=== PATIENT | male | born 1950 | race Caucasian/White ===

== ENCOUNTER 2023-01-19 17:00 | Outpatient (CLI) | payer MEDICARE, OTHER ==
[2023-01-19 18:20] LABS: Bilirubin Neg (Negative); Blood, Urine 250 (Negative); Clarity Slightly Cloudy (Clear); Glucose, Urine (Dipstick) Normal (Negative); Hemoglobin 13.6 g/dL (13.5-17.5); Ketone, Urine Negative (Negative); Leukocyte 100 (Negative); Mean Corpuscular HGB CONC 33.1 g/dL (32.0-36.0); Mean Corpuscular Hemoglobin 29.8 pg (27.0-33.0); Mean Corpuscular Volume 89.9 fl (81.2-95.1); Mean Platelet Volume 10.7 fl (7.4-10.4); Nitrite Negative (Negative); Platelet Count 202 10x3/uL (150-450); Protein, Urine (Dipstick) 30 mg/dl (Neg-Trace); RBC Distribution Width 13.7 % (11.5-14.5); Red Blood Cell (RBC) Count 4.57 10x6/uL (4.32-5.72); Specific Gravity, Urine 1.015 (1.005-1.030); Urobilinogen Normal mg/dL (Less than 2); White Blood Cell (WBC) Count 7.3 10x3/uL (3.5-10.5)
[2023-01-19 18:35] LABS: Anion Gap 15 mmol/L (10-20); BUN (Urea Nitrogen) 38 mg/dL (8.4-25.7); Calc. Creatinine Clearance 0 mL/min (70-130); Calcium 8.6 mg/dL (7.8-10.44); Carbon Dioxide 23 mmol/L (23-31); Chloride 109 mmol/L (98-107); Estimated GFR 26; Glucose 89 mg/dL (83-110); Sodium 143 mmol/L (136-145)
[2023-01-19 18:36] LABS: PTT 28.4 sec (22.0-33.0); Prothrombin Time 11.2 sec (9.5-12.1)
[2023-01-19 18:39] LABS: Bacteria/HPF 1+ HPF (None Seen); Mucous/LPF Rare LPF (<2+); RBC/HPF Greater than 50 HPF (0-3); Squamous Epithelial 0-3 HPF (0-3)
== END 2023-01-19 17:01 | disposition home or self-care (01) ==
LOC: LABBT 17:00
PROVIDERS: ATTEND Urology
DX: Z01.818 Encounter for other preprocedural examination (principal); N20.1 Calculus of ureter
CPT/HCPCS: 80048; 81001; 85027; 85610; 85730; 87086; 93005; 93010

== ENCOUNTER 2023-01-29 02:46 | Day surgery (SDC) | payer OTHER ==
[2023-01-29] MEDS ORDERED: fentaNYL PF 100 MCG/2 ML SYRINGE ONE (10:29)
== END 2023-01-29 16:33 | disposition home or self-care (01) ==
LOC: SDC 02:46
PROVIDERS: ATTEND Urology
DX: N20.1 Calculus of ureter (principal); I12.9 Hypertensive chronic kidney disease with stage 1 through stage 4 chronic kidney disease, or unspecified chronic kidney disease; N18.30 Chronic kidney disease, stage 3 unspecified; E78.5 Hyperlipidemia, unspecified; I48.91 Unspecified atrial fibrillation; G47.30 Sleep apnea, unspecified; I69.354 Hemiplegia and hemiparesis following cerebral infarction affecting left non-dominant side; F03.90 Unspecified dementia, unspecified severity, without behavioral disturbance, psychotic disturbance, mood disturbance, and anxiety; J30.2 Other seasonal allergic rhinitis; M19.90 Unspecified osteoarthritis, unspecified site; N40.0 Benign prostatic hyperplasia without lower urinary tract symptoms; Z53.9 Procedure and treatment not carried out, unspecified reason; Z88.2 Allergy status to sulfonamides

== ENCOUNTER 2023-01-29 07:11 | Day surgery (SDC) | payer MEDICARE ==
[2023-01-28 09:26] VITALS: BMI 39.8
[2023-01-29] MEDS ORDERED: Levofloxacin 500 mg/D5W 100 ml Premix Bag ONE (10:40)
[2023-01-29] MEDS ORDERED: Glycopyrrolate 0.2 MG/ML 5 ML SYRINGE ONE (10:58)
[2023-01-29] MEDS ORDERED: Rocuronium Bromide 10 MG/ML (10ML VIAL) ONE (10:58)
[2023-01-29] MEDS ORDERED: PROPOFOL 200 MG/20 ML VIAL ONE (10:58)
[2023-01-29] MEDS ORDERED: Ondansetron PF 4 MG/2 ML Vial ONE (10:58)
[2023-01-29] MEDS ORDERED: Dexamethasone 20 MG/5 ML VIAL ONE (10:58)
[2023-01-29] MEDS ORDERED: NEOSTIGMINE 3 MG/3 ML SYR 3 MG/3 ML SYRINGE ONE (10:58)
[2023-01-29] MEDS ORDERED: Oxybutynin 5 MG TAB ONE (13:11)
== END 2023-01-29 16:33 | disposition home or self-care (01) ==
LOC: SDC 07:11
PROVIDERS: ATTEND Urology
PROC: 0TC08ZZ Extirpation of Matter from Right Kidney, Via Natural or Artificial Opening Endoscopic (ICD-10-PCS; principal; 2023-01-29)
PROC: 0T768DZ Dilation of Right Ureter with Intraluminal Device, Via Natural or Artificial Opening Endoscopic (ICD-10-PCS; 2023-01-29)
DX: N20.0 Calculus of kidney (principal); N28.89 Other specified disorders of kidney and ureter; I48.91 Unspecified atrial fibrillation; E78.5 Hyperlipidemia, unspecified; I12.9 Hypertensive chronic kidney disease with stage 1 through stage 4 chronic kidney disease, or unspecified chronic kidney disease; N18.9 Chronic kidney disease, unspecified; Z86.73 Personal history of transient ischemic attack (TIA), and cerebral infarction without residual deficits; Z79.01 Long term (current) use of anticoagulants; Z79.899 Other long term (current) drug therapy; Z88.2 Allergy status to sulfonamides; M86.172 Other acute osteomyelitis, left ankle and foot; Z79.2 Long term (current) use of antibiotics
CPT/HCPCS: 52356; 82365; C1713; C1747; C1769; C2617; 88300; J1100; J1956; J2405; J2704

== ENCOUNTER 2023-02-09 07:52 | Outpatient (CLI) | payer OTHER | END 2023-02-09 07:53 | disposition home or self-care (01) | LOC: NM 07:52 | PROVIDERS: ATTEND Urology | DX: N28.89 Other specified disorders of kidney and ureter (principal) | CPT/HCPCS: 71046; 78306; A9503 ==

== ENCOUNTER 2024-03-28 14:49 | Outpatient (CLI) | payer OTHER ==
[2024-03-28 16:12] LABS: Anion Gap 16 mmol/L (10-20); BUN (Urea Nitrogen) 35 mg/dL (8.4-25.7); Calc. Creatinine Clearance 0 mL/min (70-130); Calcium 9.1 mg/dL (7.8-10.44); Carbon Dioxide 22 mmol/L (23-31); Estimated GFR 22; Glucose 109 mg/dL (83-110)
[2024-03-28 16:27] LABS: Chloride 110 mmol/L (98-107); Potassium 4.3 mmol/L (3.5-5.1); Sodium 144 mmol/L (136-145)
== END 2024-03-28 14:50 | disposition home or self-care (01) ==
LOC: LABBT 14:49
PROVIDERS: ATTEND Internal Medicine Cardiovascular Disease
DX: Z01.812 Encounter for preprocedural laboratory examination (principal)
CPT/HCPCS: 80048

== ENCOUNTER 2024-04-01 08:41 | Day surgery (SDC) | payer OTHER ==
[2024-03-28 15:18] VITALS: BMI 39.1
[2024-04-01] MEDS ORDERED: PROPOFOL 20 ML ONE (10:43)
[2024-04-01] MEDS ORDERED: Glycopyrrolate 0.2 MG/ML 5 ML SYRINGE ONE (11:46)
[2024-04-01] MEDS ORDERED: Lidocaine 1% PF 5 ML VIAL ONE (11:46)
== END 2024-04-01 13:10 | disposition home or self-care (01) ==
LOC: SDC 08:41
PROVIDERS: ATTEND Internal Medicine Cardiovascular Disease
PROC: 5A2204Z Restoration of Cardiac Rhythm, Single (ICD-10-PCS; principal; 2024-04-01)
PROC: B246ZZ4 Ultrasonography of Right and Left Heart, Transesophageal (ICD-10-PCS; 2024-04-01)
DX: I48.0 Paroxysmal atrial fibrillation (principal); I08.9 Rheumatic multiple valve disease, unspecified; I10 Essential (primary) hypertension; G47.30 Sleep apnea, unspecified; Z88.2 Allergy status to sulfonamides; Z79.899 Other long term (current) drug therapy
CPT/HCPCS: 92960; 93005; 93312; J2704; 93010